=== PATIENT | female | born 1950 | race Caucasian/White ===

== ENCOUNTER → 2025-04-16 | Outpatient (CLI) | payer MEDICAID, SELFPAY ==
--- NOTE | 2025-04-16 15:30 | XR_ITS ---
Examination: CT chest high resolution CT low-dose screening study, without contrast. 2-D sagittal reconstructions. 2-D coronal reconstructions. 3-D reconstructions. Date and time of exam: April 16, 2025, 1530 hours INDICATIONS: Smoking history 20 years with coughing 1 year CTDI: vol (mGy): 7.64 DLP: (mGycm): 298 Technique: Multiple 1.25 mm axial sections of the chest have been obtained. 2-D sagittal and coronal reconstructions have been obtained. 3-D reconstructions have been obtained. Low dose protocols were performed. One or more of the following dose reduction techniques were used; automated exposure control, adjustment of the mA and/or KV according to patient size, use of iterative reconstruction technique. Findings: No thoracic aortic aneurysmal dilatation Pulmonary artery segments are not enlarged. Moderate to heavy calcification left anterior descending right coronary arteries No paratracheal tracheobronchial or bronchopulmonary adenopathy Significant hyperexpansion 2 mm calcified nodule left lower lobe, no noncalcified pulmonary nodules No pneumonia or pulmonary edema No visualized liver or splenic lesion No gallstones No pancreatic mass Atrophic left kidney No hydronephrosis Prominent osteopenia with moderate kyphosis dorsal spine, mild to moderate narrowing disc spaces thoracic spine IMPRESSION: COPD No mediastinal lymphadenopathy No noncalcified pulmonary nodules
== END | disposition home or self-care (01) ==
PROVIDERS: PCP Nurse Practitioner Family; Referring Provider Nurse Practitioner Family; Visit Provider Nurse Practitioner Family
DX: J44.9 Chronic obstructive pulmonary disease, unspecified (principal); Z72.0 Tobacco use
CPT/HCPCS: 71271